=== PATIENT | female | born 1990 | race Hispanic/Latino ===

== ENCOUNTER 2019-03-03 05:54 | Day surgery (SDC) | payer OTHER ==
[~2019-03-03] VITALS: Ht 160 cm; Wt 68.0 kg
[2019-03-03] MEDS ORDERED: LR 1,000 ML IV ONE (06:00)
[2019-03-03 06:19] LABS: HEMATOCRIT 39.6 % (36.0-47.0); HEMOGLOBIN 13.1 g/dl (12.0-15.5); MEAN CORPUSCULAR HEMOGLOBIN 30.5 pg (27.0-33.0); MEAN CORPUSCULAR HGB CONC 33.1 g/dl (32.0-36.5); MEAN CORPUSCULAR VOLUME 92.3 fl (80.0-96.0); PLATELET COUNT, AUTOMATED 323 10^3/uL (150-450); RED BLOOD COUNT 4.29 10^6/uL (4.00-5.40); WHITE BLOOD COUNT 8.2 10^3/uL (4.0-10.0)
[2019-03-03 06:47] LABS: HCG, SERUM QUALITATIVE NEGATIVE (NEGATIVE)
[2019-03-03] MEDS ORDERED: LIDOCAINE W/EPINEPHRINE 1% 20ML VIAL As Ordered ONE (06:57)
[2019-03-03] MEDS ORDERED: IODINE STRONG SOLN 15 ML BTL As Ordered ONE (06:57)
[2019-03-03] MEDS ORDERED: PROPOFOL 200 MG/20 ML VIAL As Ordered ONE (07:00)
[2019-03-03] MEDS ORDERED: dexameTHASONE 4 MG/ML 1ML VIAL (J1100) As Ordered ONE (07:00)
[2019-03-03] MEDS ORDERED: LIDOCAINE 2% INJ 100 MG/5 ML SDV (FOR ANES.) As Ordered ONE (07:00)
[2019-03-03] MEDS ORDERED: ONDANSETRON 4MG/2ML VIAL (J2405) As Ordered ONE (07:00)
[2019-03-03] MEDS ORDERED: fentaNYL 100 MCG/2 ML INJECTION (J3010) As Ordered ONE (07:04)
[2019-03-03] MEDS ORDERED: MIDAZOLAM INJ 2 MG/2 ML VIAL (J2250) As Ordered ONE (07:05)
[2019-03-03] MEDS ORDERED: PROPOFOL 500 MG/50 ML VIAL As Ordered ONE (07:17)
[2019-03-03 08:45] VITALS: BP 118/63
[2019-03-03] MEDS ORDERED: fentaNYL 100 MCG/2 ML INJECTION (J3010) IV PRN (09:00)
[2019-03-03] MEDS ORDERED: HYDROMORPHONE HCL 0.5 MG/ 0.5 ML SYRINGE (J1170 PER 1) IV PRN (09:00)
[2019-03-03] MEDS ORDERED: PERCOCET 5MG/325MG TAB PO PRN (09:00)
[2019-03-03] MEDS ORDERED: KETOROLAC 30 MG/ML VIAL (J1885) IV PRN (09:00)
[2019-03-03] MEDS ORDERED: LR 1,000 ML IV SCH (09:00)
[2019-03-03] MEDS ORDERED: ONDANSETRON 4MG/2ML VIAL (J2405) IV PRN (09:00)
[2019-03-03] MEDS ORDERED: KETOROLAC 60 MG/2 ML VIAL (J1885) As Ordered ONE (09:07)
--- NOTE | 2019-03-04 12:02 | RO ---
DATE OF PROCEDURE: 03/03/2019 PREPROCEDURE DIAGNOSIS: Cervical dysplasia. POSTPROCEDURE DIAGNOSIS: Cervical dysplasia. PROCEDURE: Loop electrosurgical excision procedure. SURGEON: Otoniel Medel DO WINDOW TINTER: None. ANESTHESIA: MAC IV FLUIDS: 300 mL of lactated Ringers. URINE OUTPUT: 260 mL. ESTIMATED BLOOD LOSS: 1 mL. ANTIBIOTICS: None indicated. COMPLICATIONS: None. DESCRIPTION OF PROCEDURE: The risks, benefits, indications and alternatives to the procedure were reviewed with the patient and informed consent was obtained. The patient was taken to the operating room where IV sedation was obtained without difficulty. The patient was then prepped and draped in the usual sterile fashion and the bladder was drained using an in and out catheter. A surgical time out was then performed and the patient's identity and planned procedure were verified with the operating team. A sterile speculum was then placed into the patient's vagina and the cervix was visualized. A paracervical block was then performed using approximately 10 mL of 1% Lidocaine with epinephrine. Lugol's solution was then copiously applied to the cervix. The patient's IUD strings were noted to be protruding from the cervical os. After application of Lugol's, inspection of the cervix was performed. Lugol's solution highlighted a lesion in the endocervical canal extending to the 6 o'clock position of the cervix. The LEEP device was set to 60-60 blend and activated. The IUD strings were pushed away from the operative site. The cautery wire was then passed across the highlighted portion of the cervix in two passes. Production of an adequate tissue sample was obtained. The tissue samples were sent to pathology for review. Superficial electrocoagulation of the cervical stroma was then performed and excellent hemostasis was achieved. Monsel's solution was then copiously applied to the cervix. Inspection again revealed excellent hemostasis. The sterile speculum was then removed from the patient's vagina. A vaginal sweep was performed and confirmed no retained foreign objects remained in the vagina. The patient tolerated the procedure well and was taken to the recovery room in stable condition. [facility] [place]
== END 2019-03-03 09:46 | disposition home or self-care (01) ==
LOC: M SDC 05:54
PROVIDERS: ATTEND Obstetrics & Gynecology
DX: N87.9 Dysplasia of cervix uteri, unspecified (principal)
CPT/HCPCS: 36415; 57522; 84703; 85027; 88307; J1100; J1885; J2250; J2405; J3010